=== PATIENT | male | born 1970 | race Caucasian/White ===

== ENCOUNTER 2017-04-06 09:58 | Emergency (ER) | payer OTHER ==
[~2017-04-06] VITALS: Ht 167.6 cm; Wt 81.8 kg
[2017-04-06] MEDS ORDERED: DIAZEPAM 5 MG/ML 2 ML SYRINGE IM ONE (10:45)
[2017-04-06] MEDS ORDERED: DIAZEPAM 5 MG TABLET PO ONE (13:15)
[2017-04-06 13:38] VITALS: BP 149/89
== END 2017-04-06 13:39 | disposition home or self-care (01) ==
LOC: EMS 10:08
DX: F15.10 Other stimulant abuse, uncomplicated (principal); F41.9 Anxiety disorder, unspecified
CPT/HCPCS: 96372; 99283; J1885